=== PATIENT | male | born 1980 | race Caucasian/White ===

== ENCOUNTER 2016-12-08 15:58 | Emergency (ER) | payer SELFPAY ==
[2016-12-08] MEDS ORDERED: DIPH/PERTUSS(ACELL)/TETANUS VAC/PF 0.5 ML SYR (>=10YO) IM ONE (17:04)
--- NOTE | 2016-12-08 17:05 | ER Document Report ---
ED Medical Screen (RME) - General Chief Complaint: Skin Problem Stated Complaint: POSSIBLE INFECTION Mode of Arrival: Ambulatory Information source: Patient Notes: 36 y/o M presents to ED c/o areas to bilateral forearms of numbness, tingling, and redness. Denies fever or drainage. Admits to IV drug use last use 2 days ago. I have greeted and performed a rapid initial assessment of this patient. A comprehensive ED assessment and evaluation of the patient, analysis of test results and completion of the medical decision making process will be conducted by additional ED providers. TRAVEL OUTSIDE OF THE [place] IN LAST 30 DAYS: No - Related Data Allergies/Adverse Reactions: NSAIDS (Non-Steroidal Anti-Inflamma Allergy (Verified 12/08/16 17:02) Penicillins Allergy (Verified 12/08/16 17:02) Past Medical History - Social History Frequency of alcohol use: Occasional Drug Abuse: Methamphetamine Renal/ Medical History: Denies: Hx Peritoneal Dialysis Physical Exam - Vital signs Vitals: Temp Pulse Resp BP Pulse Ox 98.3 F 87 20 129/75 H 99 12/08/16 16:24 12/08/16 16:24 12/08/16 16:24 12/08/16 16:24 12/08/16 16:24 - General General appearance: Appears well, Alert In distress: None Course - Vital Signs Vital signs: Temp Pulse Resp BP Pulse Ox 98.3 F 87 20 129/75 H 99 12/08/16 16:24 12/08/16 16:24 12/08/16 16:24 12/08/16 16:24 12/08/16 16:24
--- NOTE | 2016-12-08 20:48 | ER Document Report ---
ED General - General Chief Complaint: Skin Problem Stated Complaint: POSSIBLE INFECTION Time seen by provider: 20:42 Mode of Arrival: Ambulatory Information source: Patient Notes: 36-year-old male presents to ED for pain in bilateral forearms and upper arms due to multiple IV drug use with meth that was homemade by a friend. He states that he has numbness and tingling in both forearms with redness and swelling to areas where he has injected. Patient states the last IV use was on . He states he used meth frequently last year just got out of alf a month ago and is used multiple times this month the last being on . TRAVEL OUTSIDE OF THE [place] IN LAST 30 DAYS: No - HPI Onset: Yesterday Onset/Duration: Gradual Quality of pain: Sharp, Throbbing, Other - Numbness and tingling Severity: Moderate Pain Level: 4 Associated symptoms: Other - Pain to bilateral arms from IV drug use Exacerbated by: Movement Relieved by: Denies Similar symptoms previously: No Recently seen / treated by doctor: No - Related Data Allergies/Adverse Reactions: NSAIDS (Non-Steroidal Anti-Inflamma Allergy (Verified 12/08/16 17:02) Penicillins Allergy (Verified 12/08/16 17:02) Past Medical History - General Information source: Patient - Social History Smoking Status: Current Every Day Smoker Cigarette use (# per day): Yes - one third pack per day Chew tobacco use (# tins/day): No Smoking Education Provided: Yes - less than 2 minutes Frequency of alcohol use: Occasional - The lower sixpack a month Drug Abuse: Methamphetamine Lives with: Alone Family History: Reviewed & Not Pertinent - Past Medical History Cardiac Medical History: Reports: None Pulmonary Medical History: Reports: None EENT Medical History: Reports: None Neurological Medical History: Reports: None Endocrine Medical History: Reports: None Renal/ Medical History: Reports: None Malignancy Medical History: Reports None GI Medical History: Reports: None Musculoskeltal Medical History: Reports None Skin Medical History: Reports Hx Cellulitis Psychiatric Medical History: Reports: None, Other - Drug addiction meth Traumatic Medical History: Reports: Hx Fractures - Fractured pelvis leg finger and skull, Hx Traumatic Brain Injury - Skull fracture Infectious Medical History: Reports: None Past Surgical History: Reports: Hx Adenoidectomy, Hx Orthopedic Surgery - Cervical fusion tendon repair to pinky finger, Hx Tonsillectomy Review of Systems - Review of Systems Constitutional: No symptoms reported EENT: No symptoms reported Cardiovascular: No symptoms reported Respiratory: No symptoms reported Gastrointestinal: No symptoms reported Genitourinary: No symptoms reported Male Genitourinary: No symptoms reported Musculoskeletal: No symptoms reported Skin: Other - Infection and IV drug injection sites states she's having numbness and tingling both forearms Hematologic/Lymphatic: No symptoms reported Neurological/Psychological: No symptoms reported, Numbness, Tingling -: Yes All other systems reviewed and negative Physical Exam - Vital signs Vitals: Temp Pulse Resp BP Pulse Ox 98.3 F 87 20 129/75 H 99 12/08/16 16:24 12/08/16 16:24 12/08/16 16:24 12/08/16 16:24 12/08/16 16:24 Interpretation: Normal - General General appearance: Appears well, Alert - HEENT Head: Normocephalic, Atraumatic Eyes: Normal Pupils: PERRL - Respiratory Respiratory status: No respiratory distress Chest status: Nontender Breath sounds: Normal Chest palpation: Normal - Cardiovascular Rhythm: Regular Heart sounds: Normal auscultation Murmur: No - Abdominal Inspection: Normal Distension: No distension Bowel sounds: Normal Tenderness: Nontender Organomegaly: No organomegaly - Back Back: Normal, Nontender - Extremities General upper extremity: Normal inspection, Nontender, Normal color, Normal ROM , Normal temperature General lower extremity: Normal inspection, Nontender, Normal color, Normal ROM , Normal temperature, Normal weight bearing. No: Julio's sign - Neurological Neuro grossly intact: Yes Cognition: Normal Orientation: AAOx4 Whitmore Coma Scale Eye Opening: Spontaneous Niki Coma Scale Verbal: Oriented Whit[place] Coma Scale Motor: Obeys Commands Niki Coma Scale Total: 15 Speech: Normal Motor strength normal: LUE, RUE, LLE, RLE Sensory: Normal - Psychological Associated symptoms: Normal affect, Normal mood - Skin Skin Temperature: Warm Skin Moisture: Dry Skin Color: Normal Location of irregularity: Extremities - Bilateral forearms multiple injection sites minimal erythema to sites. No streaking no warmth to the area. Character of irregularity: Erythematous - Minimal 2 injection sites Irregularity with: Tenderness. negative: Warmth, Inflammation Course - Re-evaluation Re-evalutation: 12/08/16 20:[address] Salomon, recommended patient treated patient with Keflex and Septra. Patient treated with Keflex and Septra in the emergency room and discharged home with prescriptions for both. Patient to follow-up with primary doctor. - Vital Signs Vital signs: Temp Pulse Resp BP Pulse Ox 98.3 F 87 20 129/75 H 99 12/08/16 16:24 12/08/16 16:24 12/08/16 16:24 12/08/16 16:24 12/08/16 16:24 Discharge - Discharge Clinical Impression: cellulitis to IV drug injection sites Condition: Stable Disposition: HOME, SELF-CARE Instructions: Family Physicians / Practices Additional Instructions: CELLULITIS: You have an infection of your skin and underlying soft tissues called cellulitis. This is due to bacteria, which can enter through any break in the skin, or even through an irritated hair follicle. Untreated, cellulitis will usually worsen. Antibiotics are required. Usually, warm packs or warm soaks, and elevation of the infected area are recommended. You should start getting better within 24 to 36 hours. Most infections respond quickly to the right medication. Follow-up care is important, however, to check for abscess (boil) formation, unsuspected foreign body, or resistant infection. If you develop fever, chills, or if the area of infection is becoming rapidly more swollen or painful, call the doctor at once. TRIMETHOPRIM-SULFA: You have been given a prescription for trimethoprim-sulfa (TMS, Septra, Bactrim). This is a combination antibiotic of the sulfa class, often used for urinary tract infections, middle ear infections, bronchitis, shigella intestinal infection, and Pneumocystis pneumonia. TMS is usually well-tolerated. Occasional side effects include nausea and decreased appetite. Septra is not recommended for infants less than two months of age. Do not take this medication if you have experienced severe side effects or allergy to sulfa medicine. You should stop this medicine at once and contact your physician if you develop any rash, joint pain, shortness of breath, bruising, or jaundice ( yellow color in the skin), or if you develop any other new or unusual symptoms. Cephalexin The antibiotic you've been prescribed is a member of the cephalosporin class. This type of antibiotic covers a wide variety of infections, including those of the skin, lungs, and urinary tract. It's useful for staph infections. This antibiotic is slightly similar to the penicillin family. In rare cases , a person who is allergic to penicillin will also be allergic to this medication. If you have had a severe allergic reaction to penicillin, and have not taken this antibiotic since that time, notify your doctor. Antibiotics which cover many germs ("broad spectrum" antibiotics) are more likely to cause diarrhea or "yeast" infections. Women prone to vaginal yeast problems may suffer an attack after taking this antibiotic. In infants, oral thrush (white spots "stuck" on the cheek) or yeast diaper rash may result. See your doctor if these problems occur. Call at once if you develop itching, hives , shortness of breath, or lightheadedness. FOLLOW-UP CARE: If you have been referred to a physician for follow-up care, call the physician s office for an appointment as you were instructed or within the next two days. If you experience worsening or a significant change in your symptoms, notify the physician immediately or return to the Emergency Department at any time for re-evaluation. Prescriptions: Cephalexin Monohydrate [Keflex 500 mg Capsule] 500 mg PO QID #40 capsule Sulfamethoxazole/Trimethoprim [Septra-Ds 800-160 mg Tablet] 1 tab PO BID #20 tablet Forms: Elevated Blood Pressure, Smoking Cessation Education
[2016-12-08] MEDS ORDERED: SULFAMETHOXAZOLE/TRIMETHOPRIM 800-160 MG TABLET PO ONE (20:57)
[2016-12-08] MEDS ORDERED: CEPHALEXIN 500 MG CAPSULE PO ONE (20:57)
[2016-12-08 21:14] VITALS: BP 130/88
== END 2016-12-08 21:11 | disposition home or self-care (01) ==
LOC: ER 15:58
DX: L03.114 Cellulitis of left upper limb (principal); L03.113 Cellulitis of right upper limb; R20.2 Paresthesia of skin; F19.10 Other psychoactive substance abuse, uncomplicated; F17.210 Nicotine dependence, cigarettes, uncomplicated; Z98.1 Arthrodesis status; Z88.0 Allergy status to penicillin; Z23 Encounter for immunization
CPT/HCPCS: 90471; 90715; 99283

== ENCOUNTER 2016-12-10 14:55 | Emergency (ER) | payer SELFPAY ==
--- NOTE | 2016-12-10 15:02 | ER Document Report ---
ED Medical Screen (RME) - General Stated Complaint: POSSIBLE INFECTION Time seen by provider: 15:00 Mode of Arrival: Ambulatory Information source: Patient Notes: 36-year-old male presents to ED for infection in his arm and IV drug use sites where he was injecting shaken bake meth. Seen 2 days ago and started on Septra and Bactrim. The pain and swelling has gotten much worse and is not able to use his hand is much. I have greeted and performed a rapid initial assessment of this patient. A comprehensive ED assessment and evaluation of the patient, analysis of test results and completion of medical decision making process will be conducted by an additional ED providers. TRAVEL OUTSIDE OF THE [place] IN LAST 30 DAYS: No - Related Data Allergies/Adverse Reactions: NSAIDS (Non-Steroidal Anti-Inflamma Allergy (Verified 12/08/16 17:02) Penicillins Allergy (Verified 12/08/16 17:02) Past Medical History Renal/ Medical History: Denies: Hx Peritoneal Dialysis Skin Medical History: Reports Hx Cellulitis Traumatic Medical History: Reports: Hx Fractures - Fractured pelvis leg finger and skull, Hx Traumatic Brain Injury - Skull fracture Past Surgical History: Reports: Hx Adenoidectomy, Hx Orthopedic Surgery - Cervical fusion tendon repair to pinky finger, Hx Tonsillectomy - Immunizations Hx Diphtheria, Pertussis, Tetanus Vaccination: Yes - 12/08/16
[2016-12-10 15:48] LABS: ABSOLUTE BASOPHILS # (AUTO) 0.1 10^3/uL (0.0-0.2); ABSOLUTE EOSINOPHILS # (AUTO) 0.1 10^3/uL (0.0-0.6); ABSOLUTE LYMPHOCYTES (AUTO) 2.3 10^3/uL (0.5-4.7); ABSOLUTE MONOCYTES (AUTO) 0.9 10^3/uL (0.1-1.4); BASOPHILS % (AUTO) 0.5 % (0-2); EOSINOPHILS % (AUTO) 0.9 % (0-6); HEMATOCRIT 45.2 % (37.9-51.0); HEMOGLOBIN 15.1 g/dL (13.5-17.0); HGB HCT DIFFERENCE 0.1; LYMPHOCYTES % (AUTO) 17.1 % (13-45); MEAN CORPUSCULAR HEMOGLOBIN 30.8 pg (27.0-33.4); MEAN CORPUSCULAR HGB CONC 33.3 g/dL (32.0-36.0); MEAN CORPUSCULAR VOLUME 92 fl (80-97); MONOCYTES % (AUTO) 6.9 % (3-13); RED CELL DISTRIBUTION WIDTH 13.1 % (11.5-14.0); SEGMENTED NEUTROPHILS % (AUTO) 74.6 % (42-78); WHITE BLOOD COUNT 13.4 10^3/uL (4.0-10.5)
[2016-12-10 16:11] LABS: ALANINE AMINOTRANSFERASE 37 U/L (21-72); ALKALINE PHOSPHATASE 77 U/L (38-126); ANION GAP 14 (5-19); ASPARTATE AMINO TRANSFERASE 28 U/L (17-59); BILIRUBIN,TOTAL 0.7 mg/dL (0.2-1.3); BLOOD UREA NITROGEN 18 mg/dL (7-20); CALCIUM 9.8 mg/dL (8.4-10.2); CARBON DIOXIDE 25 mmol/L (22-30); CHLORIDE 104 mmol/L (98-107); CREATININE RESULT 1.09 mg/dL (0.52-1.25); GLUCOSE 83 mg/dL (75-110); POTASSIUM 4.8 mmol/L (3.6-5.0); SODIUM 142.9 mmol/L (137-145); TOTAL PROTEIN 8.1 g/dL (6.3-8.2)
[2016-12-10 16:27] LABS: URINE BARBITURATES SCREEN NEGATIVE; URINE METHADONE SCREEN NEGATIVE; URINE PHENCYCLIDINE SCREEN NEGATIVE
[2016-12-10 16:43] LABS: APPEARANCE,URINE CLEAR; BILIRUBIN,URINE NEGATIVE (NEGATIVE); GLUCOSE, URINE NEGATIVE (NEGATIVE); KETONES,URINE NEGATIVE (NEGATIVE); LEUKOCYTE ESTERASE,URINE NEGATIVE (NEGATIVE); NITRITE,URINE NEGATIVE (NEGATIVE); PROTEIN,URINE NEGATIVE (NEGATIVE); UROBILINOGEN,URINE NEGATIVE mg/dL (<2.0)
--- NOTE | 2016-12-10 16:50 | ER Document Report ---
HPI - HPI Patient complains to provider of: cellulitis Pain Level: 5 Context: Patient is a 36-year-old male presents emergency Department complaining of cellulitis bilateral forearms. Patient was seen here 2 days ago discharged home on and . Patient states that his cellulitis. Present is concerned that he has infection affecting his tendons. Otherwise he is been compliant with antibiotics Denies any past medical history Denies any past surgical history Social history: Admits to IV drug use was using for about 10 days of meth and last use was last . Does not have a primary care provider - DERM Skin Color: Normal Past Medical History - General Information source: Patient - Social History Smoking Status: Current Every Day Smoker Chew tobacco use (# tins/day): No Frequency of alcohol use: Occasional Drug Abuse: Methamphetamine Family History: Reviewed & Not Pertinent Patient has suicidal ideation: No Patient has homicidal ideation: No Renal/ Medical History: Denies: Hx Peritoneal Dialysis Skin Medical History: Reports Hx Cellulitis Traumatic Medical History: Reports: Hx Fractures - Fractured pelvis leg finger and skull, Hx Traumatic Brain Injury - Skull fracture Past Surgical History: Reports: Hx Adenoidectomy, Hx Orthopedic Surgery - Cervical fusion tendon repair to pinky finger, Hx Tonsillectomy - Immunizations Hx Diphtheria, Pertussis, Tetanus Vaccination: Yes - 12/08/16 Vertical Provider Document - CONSTITUTIONAL Agree With Documented VS: Yes Exam Limitations: No Limitations General Appearance: WD/WN, No Apparent Distress - INFECTION CONTROL TRAVEL OUTSIDE OF THE [place] IN LAST 30 DAYS: No - RESPIRATORY O2 Sat by Pulse Oximetry: 100 - CARDIOVASCULAR Pulses: Normal: Radial Notes: Capillary refill less than 2 seconds in upper extremity digits bilaterally - MUSCULOSKELETAL/EXTREMETIES Musculoskeletal/Extremeties: MAEW, FROM, No Edema. 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 12/10/16 16:51 Patient is hemodynamically stable, no acute distress and afebrile. No evidence of tachycardia. Instructed on cellulitis care and to clean his antibiotics as prescribed - Vital Signs Vital signs: Temp Pulse Resp BP Pulse Ox 98.1 F 97 16 127/73 H 100 12/10/16 15:03 12/10/16 15:03 12/10/16 15:03 12/10/16 15:03 12/10/16 15:03 - Laboratory Result Diagrams: 12/10/16 15:15 12/10/16 15:15 Laboratory results interpreted by me: 12/10/16 15:15 WBC 13.4 H Absolute Neutrophils 10.0 H Discharge - Discharge Clinical Impression: Cellulitis Qualifiers: Site of cellulitis: unspecified site Qualified Code(s): L03.90 - Cellulitis, unspecified Condition: Good Disposition: HOME, SELF-CARE Additional Instructions: CELLULITIS: You have an infection of your skin and underlying soft tissues called cellulitis. This is due to bacteria, which can enter through any break in the skin, or even through an irritated hair follicle. Untreated, cellulitis will usually worsen. Antibiotics are required. Usually, warm packs or warm soaks, and elevation of the infected area are recommended. You should start getting better within 24 to 36 hours. Most infections respond quickly to the right medication. Follow-up care is important, however, to check for abscess (boil) formation, unsuspected foreign body, or resistant infection. If you develop fever, chills, or if the area of infection is becoming rapidly more swollen or painful, call the doctor at once. TRIMETHOPRIM-SULFA: You have been given a prescription for trimethoprim-sulfa (TMS, Septra, Bactrim). This is a combination antibiotic of the sulfa class, often used for urinary tract infections, middle ear infections, bronchitis, shigella intestinal infection, and Pneumocystis pneumonia. TMS is usually well-tolerated. Occasional side effects include nausea and decreased appetite. Septra is not recommended for infants less than two months of age. Do not take this medication if you have experienced severe side effects or allergy to sulfa medicine. You should stop this medicine at once and contact your physician if you develop any rash, joint pain, shortness of breath, bruising, or jaundice ( yellow color in the skin), or if you develop any other new or unusual symptoms. FOLLOW-UP CARE: If you have been referred to a physician for follow-up care, call the physician s office for an appointment as you were instructed or within the next two days. If you experience worsening or a significant change in your symptoms, notify the physician immediately or return to the Emergency Department at any time for re-evaluation. Forms: Return to Work Referrals: [facility] [NO LOCAL MD] - Follow up as needed
[2016-12-10 17:39] VITALS: BP 115/69
== END 2016-12-10 17:30 | disposition home or self-care (01) ==
LOC: ER 14:55
DX: L03.114 Cellulitis of left upper limb (principal); L03.113 Cellulitis of right upper limb; F17.200 Nicotine dependence, unspecified, uncomplicated
CPT/HCPCS: 36415; 80053; 80307; 81001; 83605; 85025; 87040; 99283

== ENCOUNTER 2017-11-21 16:18 | Emergency (ER) | payer OTHER ==
--- NOTE | 2017-11-21 19:24 | ER Document Report ---
HPI - HPI Patient complains to provider of: cut right eyebrow Onset: Just prior to arrival Pain Level: Denies Context: 37 yo male from [facility] was doing a handstand pushup and hit right eyebrow on the ground cutting the skin at 2 pm. imm curent Associated Symptoms: None Exacerbated by: Denies Relieved by: Denies - ROS ROS below otherwise negative: Yes Systems Reviewed and Negative: Yes All other systems reviewed and negative Past Medical History - General Information source: Patient - Social History Smoking Status: Current Every Day Smoker Frequency of alcohol use: None Drug Abuse: None Lives with: Other - [facility] now Family History: Reviewed & Not Pertinent Renal/ Medical History: Denies: Hx Peritoneal Dialysis Skin Medical History: Reports Hx Cellulitis Traumatic Medical History: Reports: Hx Fractures - Fractured pelvis leg finger and skull, Hx Traumatic Brain Injury - Skull fracture Past Surgical History: Reports: Hx Adenoidectomy, Hx Orthopedic Surgery - Cervical fusion tendon repair to pinky finger, Hx Tonsillectomy - Immunizations Hx Diphtheria, Pertussis, Tetanus Vaccination: Yes - 12/08/16 Vertical Provider Document - CONSTITUTIONAL Agree With Documented VS: Yes Exam Limitations: No Limitations General Appearance: No Apparent Distress - INFECTION CONTROL TRAVEL OUTSIDE OF THE [place] IN LAST 30 DAYS: No - HEENT HEENT: Normocephalic Notes: 1.5 cm full thickness just above lateral right eyebrow - NECK Neck: Supple - NEURO Level of Consciousness: Awake, Alert, Appropriate Motor/Sensory: No Motor Deficit, No Sensory Deficit - DERM Integumentary: Laceration Course - Re-evaluation Re-evalutation: 11/21/17 19:55 Patient wanted Dermabond closure Procedures - Laceration/Wound Repair Right Face Time completed: 19:54 Wound length (cm): 1.5 Wound's Depth, Shape: Linear Laceration pre-procedure: Other - antibacterial soap/water scrub, sterile NS rinse Irrigated w/ Saline (mLs): 10 Wound Repaired With: Dermabond Discharge - Discharge Clinical Impression: Rt eyebrow laceration Dermabond closure Condition: Good Disposition: HOME, SELF-CARE Instructions: Facial Laceration ([facility]), Skin Adhesive Closure ([facility]) Additional Instructions: Keep the Dermabond glue closure on for 5 days If it is not fallen off by 7 days you can peel it off Return to the emergency room any signs of infection or problems with the wound
[2017-11-21 20:00] VITALS: BP 113/77
== END 2017-11-21 20:06 | disposition home or self-care (01) ==
LOC: ER 16:18
PROC: 0HQ1XZZ Repair Face Skin, External Approach (ICD-10-PCS; principal; 2017-11-21)
DX: S01.111A Laceration without foreign body of right eyelid and periocular area, initial encounter (principal); W18.30XA Fall on same level, unspecified, initial encounter; Y93.B2 Activity, push-ups, pull-ups, sit-ups; F17.200 Nicotine dependence, unspecified, uncomplicated; Z98.1 Arthrodesis status
CPT/HCPCS: 99283